=== PATIENT | male | born 1955 | race Caucasian/White ===

== ENCOUNTER 2017-06-19 16:13 | Inpatient (IN) | payer OTHER ==
[2017-06-19 16:43] VITALS: BMI 32.9
[2017-06-19] MEDS ORDERED: diazePAM CARPU-JECT 10 MG/2 ML DISP.SYRIN IVPUSH ONE (17:37)
[2017-06-19] MEDS ORDERED: SODIUM CHLORIDE 1,000 ML IV STA ×2 (17:37→19:08)
--- NOTE | 2017-06-19 17:38 | PDOC ---
History of Present Illness - General History Source: Patient Exam Limitations: No Limitations - History of Present Illness Initial Comments: 06/19/17 19:44 The patient is a 62 year old male, with a significant past medical history of hypertension, chronic kidney failure(not requiring dialysis for 20 years, of unknown cause) who presents to the emergency department BIBA s/p syncopal episode earlier this afternoon. The patient reports he was at work lifting a car door, when suddenly he noticed his right arm began to feel stiff, started shaking, and lifted involuntarily up in the air. The patient reports he lost consciousness shortly after. Per coworkers, the patient did not sustain any head trauma and he regained consciousness after 10 minutes.Patient denies any other motor symptoms, numbness, tingling, aura, or prodrome.The patient reports he had a similar episode 1.5 months ago. Patient reports he felt week and tired s/p both episodes. At the time, the patient followed up with his PCP, and eventually he had a CT, MRI, and 48 hr EEG which were all negative. The patient was told to f/u with a neurologist, but he missed his appointment, because of work. He denies any fever, chills, headache, dizziness, or changes in vision. He denies any chest pain, shortness of breath, diaphoresis, or palpitations. He denies any abdominal pain, nausea, vomiting, diarrhea, constipation, or changes in urination patterns. He denies any recent travel or sick contacts. Allergies: NKDA Past Surgical History: None reported. Social History: Non smoker. No ETOH or recreational drug use. <Suzanna Leroy - Last Filed: 06/19/17 19:44> <Augusta Kamara - Last Filed: 06/19/17 20:49> - General Chief Complaint: Syncope/Near Syncope Stated Complaint: SEIZURE Time Seen by Provider: 06/19/17 16:44 Past History <Suzanna Leroy - Last Filed: 06/19/17 19:44> - Past Medical History HTN: Yes - Psycho/Social/Smoking Cessation Hx Anxiety: No Suicidal Ideation: No Smoking History: Never smoked Substance Use Type: None <Augusta Kamara - Last Filed: 06/19/17 20:49> - Past Medical History Allergies/Adverse Reactions: Allergies Allergy/AdvReac Type Severity Reaction Status Date / Time No Known Allergies Allergy Verified 06/19/17 16:43 Home Medications: Ambulatory Orders Amlodipine Besylate [Norvasc -] 10 mg PO DAILY 06/19/17 Labetalol HCl 0 mg PO ASDIR 06/19/17 Review of Systems - Review of Systems Able to Perform ROS?: Yes Comments:: 06/19/17 19:45 GENERAL/CONSTITUTIONAL: Yes: +weakness, +fatigue. No fever or chills. HEAD, EYES, EARS, NOSE AND THROAT: No change in vision. No ear pain or discharge. No sore throat. CARDIOVASCULAR: No chest pain or shortness of breath. RESPIRATORY: No cough, wheezing, or hemoptysis. GASTROINTESTINAL: No nausea, vomiting, diarrhea or constipation. GENITOURINARY: No dysuria, frequency, or change in urination. MUSCULOSKELETAL: Yes: +right arm stiffness, shaking, and involuntary drifting. No joint or muscle swelling or pain. No neck or back pain. SKIN: No rash NEUROLOGIC: Yes: +loss of consciousness. No headache, vertigo, or change in strength/sensation. ENDOCRINE: No increased thirst. No abnormal weight change. HEMATOLOGIC/LYMPHATIC: No anemia, easy bleeding, or history of blood clots. ALLERGIC/IMMUNOLOGIC: No hives or skin allergy. <Suaznna Leroy - Last Filed: 06/19/17 19:44> *Physical Exam - Vital Signs Last Vital Signs Temp Pulse Resp BP Pulse Ox 98.1 F 80 18 142/73 100 06/19/17 16:33 06/19/17 16:33 06/19/17 16:33 06/19/17 16:33 06/19/17 16:33 <Suzanna Leroy - Last Filed: 06/19/17 19:44> - Vital Signs Last Vital Signs Temp Pulse Resp BP Pulse Ox 98.1 F 80 18 142/73 100 06/19/17 16:33 06/19/17 16:33 06/19/17 16:33 06/19/17 16:33 06/19/17 16:33 - Physical Exam Comments: GENERAL: Awake, alert, and fully oriented, in no acute distress HEAD: No signs of trauma EYES: PERRLA, EOMI, sclera anicteric, conjunctiva clear ENT: Auricles normal inspection, hearing grossly normal, nares patent, oropharynx clear without exudates. Moist mucosa NECK: Normal ROM, supple, no lymphadenopathy, JVD, or masses LUNGS: Breath sounds equal, clear to auscultation bilaterally. No wheezes, and no crackles HEART: Regular rate and rhythm, normal S1 and S2, no murmurs, rubs or gallops ABDOMEN: Soft, nontender, normoactive bowel sounds. No guarding, no rebound. No masses EXTREMITIES: +Coarse tremors in R arm, resolved spontaneously. Remainder of extremities with normal range of motion, no edema. No clubbing or cyanosis. No cords, erythema, or tenderness NEUROLOGICAL: Cranial nerves II through XII grossly intact. Normal speech, normal gait SKIN: Warm, Dry, normal turgor, no rashes or lesions noted. <Augusta Kamara - Last Filed: 06/19/17 20:49> Heart Score/ECG Review - ECG Impressions Comment:: EKG read 19:13- Sinus rhythm 1st deg AV block, 73 bpm, slight peaked T waves V2 , V4 <Augusta Kamara - Last Filed: 06/19/17 20:49> ED Treatment Course - LABORATORY CBC & Chemistry Diagram: 06/19/17 18:01 06/19/17 18:01 - ADDITIONAL ORDERS Additional order review: Laboratory Results 06/19/17 18:01 Sodium 134 L Potassium 6.5 H* Chloride 105 Carbon Dioxide 14 L Anion Gap 15 BUN 147 H* Creatinine 7.7 H* Creat Clearance w eGFR 7.23 Random Glucose 108 H Calcium 7.7 L Phosphorus 5.8 H Magnesium 2.4 Total Bilirubin 0.3 AST 14 L ALT 30 Alkaline Phosphatase 107 Total Protein 6.9 Albumin 4.1 06/19/17 18:01 RBC 3.32 L MCV 89.8 MCHC 33.2 RDW 13.7 MPV 10.3 Neutrophils % 87.9 H Lymphocytes % 5.4 L Monocytes % 4.8 Eosinophils % 1.2 Basophils % 0.7 - Medications Given in the ED: ED Medications Discontinued Medications Generic Name Dose Route Start Last Admin Trade Name Freq PRN Reason Stop Dose Admin Diazepam 5 mg 06/19/17 17:37 06/19/17 18:15 Valium Injection - IVPUSH 06/19/17 17:38 5 mg ONCE ONE Administration Sodium Chloride 1,000 mls @ 1,000 mls/hr 06/19/17 17:37 06/19/17 18:15 Normal Saline - IV 06/19/17 18:36 1,000 mls/hr ASDIR STA Administration <Suzanna Leroy - Last Filed: 06/19/17 19:44> - LABORATORY CBC & Chemistry Diagram: 06/19/17 18:01 06/19/17 18:01 <Augusta Kamara - Last Filed: 06/19/17 20:49> Medical Decision Making - Medical Decision Making Pt with history CKD, was in process of being scheduled for placement of AV fistula. Now with hyperkalemia. Results d/w patient, will admit to hospitalist service, as his physicians are all in [place]. <Augusta Kamara - Last Filed: 06/19/17 20:49> *DC/Admit/Observation/Transfer - Attestations Scribe Attestion: 06/19/17 19:44 Documentation prepared by Suzanna Leroy, acting as medical technologist blood bank for Augusta Kamara MD. <Suzanna Leroy - Last Filed: 06/19/17 19:44> - Discharge Dispostion Admit: Yes <Augusta Kamara - Last Filed: 06/19/17 20:49> Diagnosis at time of Disposition: Hyperkalemia - Discharge Dispostion Condition at time of disposition: Guarded - Referrals Referrals: Kathleen Carlos [Primary Care Provider] -
[2017-06-19] MEDS ORDERED: diazePAM CARPU-JECT 10 MG/2 ML DISP.SYRIN ONE (18:19)
[2017-06-19 18:26] LABS: BASOPHIL 0.7 % (0-2.0); EOSINOPHIL 1.2 % (0-4.5); MCH 29.8 pg (25.7-33.7); MCHC 33.2 g/dl (32.0-35.9); MEAN CELL VOLUME 89.8 fl (80-96); MEAN PLT VOLUME 10.3 fl (7.5-11.1); NEUTROPHILS 87.9 % (42.8-82.8); PLATELET COUNT 162 K/MM3 (134-434); RDW 13.7 % (11.9-15.9); WHITE BLOOD COUNT 11.5 K/mm3 (4.0-10.0)
[2017-06-19 18:50] LABS: ALBUMIN 4.1 g/dl (3.4-5.0); ALK PHOS 107 U/L (45-117); ANION GAP 15 (8-16); BILIRUBIN,TOTAL 0.3 mg/dL (0.2-1.0); CALCIUM 7.7 mg/dL (8.5-10.1); CO2 14 mmol/L (21-32); GLUCOSE,RANDOM 108 mg/dL (74-106); MAGNESIUM 2.4 mg/dL (1.8-2.4); PHOSPHOROUS 5.8 mg/dL (2.5-4.9); SGOT/AST 14 U/L (15-37); SGPT/ALT 30 U/L (12-78); TOT PROT 6.9 g/dl (6.4-8.2)
[2017-06-19 19:05] LABS: CREATININE 7.7 mg/dL (0.7-1.3)
[2017-06-19] MEDS ORDERED: CALCIUM GLUCONATE 10% - 1,000 MG/10 ML VIAL IVPB ONE (19:09)
[2017-06-19] MEDS ORDERED: DEXTROSE 50%-WATER - 25 GM/50 ML VIAL IVPUSH ONE (19:09)
[2017-06-19] MEDS ORDERED: INSULIN REGULAR HUMAN 100 UNITS/ML *VIAL IVPUSH ONE (19:09)
[2017-06-19] MEDS ORDERED: SODIUM BICARBONATE 8.4% 50 MEQ/50 ML DISP.SYRIN IVPUSH ONE (19:09)
[2017-06-19] MEDS ORDERED: SODIUM POLYSTYRENE SULFONATE 15 GM/60 ML BOTTLE PO ONE (19:10)
[2017-06-19] MEDS ORDERED: SODIUM BICARBONATE 8.4% - 50 ML ONE (19:29)
[2017-06-19] MEDS ORDERED: DEXTROSE 50%-WATER 50 ML DISP.SYRIN ONE (19:29)
[2017-06-19] MEDS ORDERED: SODIUM POLYSTYRENE SULFONATE 15 GM/60 ML BOTTLE ONE (19:29)
[2017-06-19] MEDS ORDERED: CALCIUM GLUCONATE 10% - 1,000 MG/10 ML VIAL ONE (19:30)
[2017-06-19] MEDS ORDERED: ALBUTEROL SO4 0.083% IH SOL 2.5 MG/3 ML VIAL.NEB. NEB ONE (19:40)
--- NOTE | 2017-06-19 19:54 | PN ---
Teaching Attending Note Name of Resident: Jonathan Rodgers ATTENDING PHYSICIAN STATEMENT I saw and evaluated the patient. I reviewed the resident's note and discussed the case with the resident. I agree with the resident's findings and plan as documented. SUBJECTIVE:Patient brought to ED after seizure at work on evaluation in ED found to have elevated potassium, BUN and CR and peaked T waves on EKG. Denies any chest pain, sob or dizziness. OBJECTIVE: Gen.: Well-nourished . Alert and oriented x3 in no acute distress. HEENT: Normocephalic, atraumatic, pupils equal and reactive to light and accommodation, EOMI, no exophthalmos, normal nasal and oral pharyngeal mucosa. Neck:Trachea midline, no thyroid nodules appreciated or thyromegaly. Cardiovascular: Regular rate, and rhythm, S1, S2, no murmur, no gallop, no rub. Respiration: Equal bilateral breath sounds ,no wheezing, no rhonchi, and no rales. Abdomen: Soft, nontender, bowel sounds present, no hepatosplenomegaly. Musculoskeletal: No peripheral edema, equal bilateral pulses, normal ROM. Neuro: Cranial nerves II through XII intact, no focal deficits. Skin: warm to touch, no rashs, no lesions CBCD WBC 11.5 K/mm3 (4.0-10.0) H 06/19/17 18:01 RBC 3.32 M/mm3 (4.00-5.60) L 06/19/17 18:01 Hgb 9.9 GM/dL (11.7-16.9) L 06/19/17 18:01 Hct 29.8 % (35.4-49) L 06/19/17 18:01 MCV 89.8 fl (80-96) 06/19/17 18:01 MCHC 33.2 g/dl (32.0-35.9) 06/19/17 18:01 RDW 13.7 % (11.9-15.9) 06/19/17 18: Plt Count 162 K/MM3 (134-434) 06/19/17 18:01 MPV 10.3 fl (7.5-11.1) 06/19/17 18:01 CMP Sodium 134 mmol/L (136-145) L 06/19/17 18:01 Potassium 6.5 mmol/L (3.5-5.1) H* 06/19/17 18:01 Chloride 105 mmol/L (98-107) 06/19/17 18:01 Carbon Dioxide 14 mmol/L (21-32) L 06/19/17 18:01 Anion Gap 15 (8-16) 06/19/17 18:01 BUN 147 mg/dL (7-18) H* 06/19/17 18:01 Creatinine 7.7 mg/dL (0.7-1.3) H* 06/19/17 18:01 Creat Clearance w eGFR 7.23 (>60) 06/19/17 18:01 Calcium 7.7 mg/dL (8.5-10.1) L 06/19/17 18:01 Total Bilirubin 0.3 mg/dL (0.2-1.0) 06/19/17 18:01 AST 14 U/L (15-37) L 06/19/17 18:01 ALT 30 U/L (12-78) 06/19/17 18:01 Alkaline Phosphatase 107 U/L (45-117) 06/19/17 18:01 Total Protein 6.9 g/dl (6.4-8.2) 06/19/17 18:01 Albumin 4.1 g/dl (3.4-5.0) 06/19/17 18:01 ASSESSMENT AND PLAN: MARY on CKD stage 5 with hyperkalemia Cocktail with calcium gluconate given in ED Will repeat BMP in 4 hrs and admit to telemetry for monitoring Seizure ativan 2mg prn follow lactic acid
[2017-06-19] MEDS: ALBUTEROL SO4 0.083% IH SOL 2.5 MG/3 ML VIAL.NEB. NEB SCH (20:30)
[2017-06-19 22:32] LABS: URINE CREATININE 22.5 mg/dL (20-370)
[2017-06-19 22:44] LABS: URINE APPEARANCE CLEAR; URINE BILIRUBIN NEGATIVE (NEGATIVE); URINE BLOOD 3+ (NEGATIVE); URINE COLOR LT. YELLOW; URINE GLUCOSE (UA) TRACE (NEGATIVE); URINE KETONE NEGATIVE (NEGATIVE); URINE LEUK ESTERASE NEGATIVE (NEGATIVE); URINE NITRITE NEGATIVE (NEGATIVE); URINE UROBILINOGEN 0.2 mg/dL (0.2-1.0)
[2017-06-19 22:47] LABS: URINE PROTEIN 1+ (NEGATIVE)
[2017-06-19 23:01] LABS: URINE RBC 7 /hpf (0-3)
[2017-06-19] MEDS: HEPARIN NA (PORCINE) 5,000 UNITS/ML 1ML VIAL SQ SCH (23:55)
[2017-06-19] MEDS ORDERED: HEPARIN NA (PORCINE) 5,000 UNITS/ML 1ML VIAL ONE (23:55)
[2017-06-20 00:40] LABS: ANION GAP 16 (8-16); CALCIUM 7.7 mg/dL (8.5-10.1); CO2 16 mmol/L (21-32); CREATININE 7.2 mg/dL (0.7-1.3); GLUCOSE,RANDOM 161 mg/dL (74-106)
--- NOTE | 2017-06-20 01:06 | HP ---
CHIEF COMPLAINT: arm shaking and syncope PCP: Kathleen Monahan English As A Second Language Instructor: Erick Martin ([phone]) [employer] Form [employer]ter #[id number] HISTORY OF PRESENT ILLNESS: 62M w/ hx of CKD stage 5, longstanding nephrotic syndrome, and HTN presenting after episode of arm shaking and syncope. 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 Pt reports some confusion for several minutes after LOC. He denies tongue biting, urinary incontinence, or falling down during episode; he states that his coworkers caught him before he fell to the ground. He currently endorses SOB, weakness, fatigue, palpitations. He denies TREJO, chest pain, cough, abdominal pain, n/v/d/c, and dysuria. Of note, pt had one other similar episode 1.5 months ago. He states that his right arm started shaking, and then he had some mild full body shaking, but he did not have any LOC. Following that episode, he went to a doctor, and underwent a CT head, MRI brain, and 48 hour EEG which were all negative. He was told to follow up with a neurologist, but was not able to see one yet due to the time constraints of his job. He states that during the last year, he has had to switch insurances due to financial troubles which resulted in him not seeing a tool storage attendant regularly. He states that his current tool storage attendant has talked to him about starting dialysis. 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 REVIEW OF SYSTEMS GENERAL: No fever, chills, night sweats, + weakness. HEAD, EYES, EARS, NOSE AND THROAT: No change in vision, ear pain, or sore throat CARDIOVASCULAR: No chest pain, + palpitations RESPIRATORY: No cough, wheezing, or hemoptysis. + SOB GASTROINTESTINAL: No nausea, vomiting, diarrhea, constipation, or blood in the stool. GENITOURINARY: No dysuria, + frequency, no urgency MUSCULOSKELETAL: No joint or muscle swelling or pain. SKIN: No rashes or pruritis ENDOCRINE: No increased thirst. No abnormal weight change NEUROLOGIC: No headache, dizziness, + loss of consciousness, no change in strength/sensation. PHYSICAL EXAMINATION Vital Signs - 24 hr 06/19/17 06/19/17 06/19/17 16:33 20:28 23:40 Temperature 98.1 F 98.1 F Pulse Rate 80 Pulse Rate [ 85 82 Apical] Respiratory 18 19 19 Rate Blood Pressure 142/73 Blood Pressure 160/76 150/80 [Left Arm] O2 Sat by Pulse 100 100 99 Oximetry (%) GENERAL: Awake, alert, and fully oriented, in mild distress. HEAD: Normal with no signs of trauma. EYES: Pupils equal, round and reactive to light, extraocular movements intact, sclera anicteric, conjunctiva clear. No lid lag. EARS, NOSE, THROAT: Ears normal, nares patent, oropharynx clear without exudates. Moist mucous membranes. NECK: Normal range of motion, supple without lymphadenopathy, JVD, or masses. LUNGS: Breath sounds equal, clear to auscultation bilaterally. No wheezes, and no crackles. No accessory muscle use. HEART: Regular rate and rhythm, normal S1 and S2, systolic murmur heard best in the right 2nd intercostal space ABDOMEN: Soft, nontender, not distended, normoactive bowel sounds, no guarding, no rebound, no masses. No hepatomegaly or splenomegaly. MUSCULOSKELETAL: Normal range of motion at all joints. No bony deformities or tenderness. No CVA tenderness. UPPER EXTREMITIES: 2+ pulses, warm, well-perfused. No cyanosis. No clubbing. No peripheral edema. LOWER EXTREMITIES: 2+ pulses, warm, well-perfused. No calf tenderness. 2+ peripheral edema b/l. NEUROLOGICAL: Cranial nerves II-XII intact. Normal speech. Normal gait. PSYCHIATRIC: Cooperative. Good eye contact. Appropriate mood and affect. SKIN: Warm, dry, normal turgor, no rashes or lesions noted, normal capillary refill. Laboratory Results - last 24 hr 06/19/17 06/19/17 06/19/17 18:01 18:01 21:20 WBC 11.5 H RBC 3.32 L Hgb 9.9 L Hct 29.8 L MCV 89.8 MCH 29.8 MCHC 33.2 RDW 13.7 Plt Count 162 MPV 10.3 Neutrophils % 87.9 H Lymphocytes % 5.4 L Monocytes % 4.8 Eosinophils % 1.2 Basophils % 0.7 Sodium 134 L Potassium 6.5 H* Chloride 105 Carbon Dioxide 14 L Anion Gap 15 BUN 147 H* Creatinine 7.7 H* Creat Clearance w eGFR 7.23 Random Glucose 108 H Calcium 7.7 L Phosphorus 5.8 H Magnesium 2.4 Total Bilirubin 0.3 AST 14 L ALT 30 Alkaline Phosphatase 107 Total Protein 6.9 Albumin 4.1 Urine Color Lt. yellow Urine Appearance Clear Urine pH 5.0 Urine Protein 1+ H Urine Glucose (UA) Trace H Urine Ketones Negative Urine Blood 3+ H Urine Nitrite Negative Urine Bilirubin Negative Urine Urobilinogen 0.2 Ur Leukocyte Esterase Negative Urine RBC 7 Urine WBC None Urine Creatinine 06/19/17 21:20 WBC RBC Hgb Hct MCV MCH MCHC RDW Plt Count MPV Neutrophils % Lymphocytes % Monocytes % Eosinophils % Basophils % Sodium Potassium Chloride Carbon Dioxide Anion Gap BUN Creatinine Creat Clearance w eGFR Random Glucose Calcium Phosphorus Magnesium Total Bilirubin AST ALT Alkaline Phosphatase Total Protein Albumin Urine Color Urine Appearance Urine pH Urine Protein 61 Urine Glucose (UA) Urine Ketones Urine Blood Urine Nitrite Urine Bilirubin Urine Urobilinogen Ur Leukocyte Esterase Urine RBC Urine WBC Urine Creatinine 22.5 ASSESSMENT/PLAN: 62M w/ hx of CKD stage 5, longstanding nephrotic syndrome, and HTN presenting after episode of seizure, found to have hyperkalemia w/ peaked T waves on EKG. #Hyperkalemia -2/2 hx of CKD compounded by episode of seizure leading to rhabdomyolysis -received 1g of calcium gluconate, 10U of insulin w/ 50g of dextrose, albuterol , sodium bicarbonate, and 30g of kayexalate. -trend BMP and lactate -consider repeat EKG in am -cardiac telemetry -nephrology on board -potassium: 6.5 --> 4.3 -creatinine: 7.7 --> 7.2 #seizure -2nd episode as per pt -pt was referred to neurologist already but has not had chance to see one yet -ativan 2mg PRN - neurology on board #kidney injury -acute on chronic kidney injury? no baseline creatinine -nephrology on board #hematuria -UA shows 3+ blood with only 7 RBCs likely 2/2 rhabdo # hypocalcemia -calcium of 7.7 -2/2 CKD -continue home calcitriol, confirm dosage in am #hyperphosphatemia -phosphate of 5.8 -2/2 CKD #leukocytosis w/ left shift -probably leukemoid reactioni 2/2 seizure -trend wbc #anemia -hgb of 9.9, mcv of 89 -likely due to CKD -continue home iron, confirm dosage in am #HTN -confirm home medications in am. Pt reports taking labetalol and amlodipine but doesn't appear to be sure. -amlodipine 10mg qd #systolic murmur -pt was told that we recommend that he receive an echocardiogram to further assess his murmur. Pt stated that he is very worried about paying for it with his current insurance situation, he understands the risks and benefits of not receiving one in the hospital, and still stated that he does not want one to be done here. Pt reports that he will pursue one as an outpatient with a pipe cleaner. #FEN/ppx -no fluids -calcium low, phosphate high -renal diet -no GI ppx -SCDs and heparin 5000 U TID Jonathan Rodgers, PGY1 Problem List - Problem (1) Hyperkalemia Code(s): E87.5 - HYPERKALEMIA (2) Hypertension Code(s): I10 - ESSENTIAL (PRIMARY) HYPERTENSION (3) CKD (chronic kidney disease) Code(s): N18.9 - CHRONIC KIDNEY DISEASE, UNSPECIFIED (4) Nephrotic syndrome Code(s): N04.9 - NEPHROTIC SYNDROME WITH UNSPECIFIED MORPHOLOGIC CHANGES (5) Seizure Code(s): R56.9 - UNSPECIFIED CONVULSIONS (6) Anemia Code(s): D64.9 - ANEMIA, UNSPECIFIED (7) Systolic murmur Code(s): R01.1 - CARDIAC MURMUR, UNSPECIFIED Visit type - Emergency Visit Emergency Visit: Yes Care time: The patient presented to the Emergency Department on the above date and was hospitalized for further evaluation of their emergent condition. - New Patient This patient is new to me today: Yes Date on this admission: 06/20/17 - Critical Care Critical Care patient: No
[2017-06-20] MEDS: HEPARIN NA (PORCINE) 5,000 UNITS/ML 1ML VIAL SQ SCH ×2 (06:41→16:51)
[2017-06-20 07:44] LABS: MCHC 33.9 g/dl (32.0-35.9); MEAN CELL VOLUME 88.6 fl (80-96); MEAN PLT VOLUME 9.9 fl (7.5-11.1); PLATELET COUNT 149 K/MM3 (134-434); RDW 13.5 % (11.9-15.9); WHITE BLOOD COUNT 6.6 K/mm3 (4.0-10.0)
[2017-06-20 08:11] LABS: ANION GAP 13 (8-16); CALCIUM 7.7 mg/dL (8.5-10.1); CO2 18 mmol/L (21-32); GLUCOSE,RANDOM 92 mg/dL (74-106); MAGNESIUM 2.2 mg/dL (1.8-2.4)
[2017-06-20 08:13] LABS: PHOSPHOROUS 6.8 mg/dL (2.5-4.9)
[2017-06-20 08:28] LABS: CREATININE 7.1 mg/dL (0.7-1.3)
--- NOTE | 2017-06-20 09:44 | PN ---
Physical Exam: SUBJECTIVE: Patient seen and examined OBJECTIVE: Vital Signs Temperature 98.4 F 06/20/17 06:02 Pulse Rate 81 06/20/17 06:02 Respiratory Rate 19 06/20/17 06:02 Blood Pressure 138/67 06/20/17 06:02 O2 Sat by Pulse Oximetry (%) 99 06/20/17 04:00 GENERAL: The patient is awake, alert, and fully oriented, in no acute distress. HEAD: Normal with no signs of trauma. EYES: PERRL, extraocular movements intact, sclera anicteric, conjunctiva clear. No ptosis. ENT: Ears normal, nares patent, oropharynx clear without exudates, moist mucous membranes. NECK: Trachea midline, full range of motion, supple. LUNGS: Breath sounds equal, clear to auscultation bilaterally, no wheezes, no crackles, no accessory muscle use. HEART: Regular rate and rhythm, S1, S2 without murmur, rub or gallop. ABDOMEN: Soft, nontender, nondistended, normoactive bowel sounds, no guarding, no rebound, no hepatosplenomegaly, no masses. EXTREMITIES: 2+ pulses, warm, well-perfused, no edema. NEUROLOGICAL: Cranial nerves II through XII grossly intact. Normal speech, gait not observed. PSYCH: Normal mood, normal affect. SKIN: Warm, dry, normal turgor, no rashes or lesions noted CBCD WBC 6.6 K/mm3 (4.0-10.0) D 06/20/17 06:00 RBC 3.21 M/mm3 (4.00-5.60) L 06/20/17 06:00 Hgb 9.7 GM/dL (11.7-16.9) L 06/20/17 06:00 Hct 28.5 % (35.4-49) L 06/20/17 06:00 MCV 88.6 fl (80-96) 06/20/17 06:00 MCHC 33.9 g/dl (32.0-35.9) 06/20/17 06:00 RDW 13.5 % (11.9-15.9) 06/20/17 06:00 Plt Count 149 K/MM3 (134-434) 06/20/17 06:00 MPV 9.9 fl (7.5-11.1) 06/20/17 06:00 CMP Sodium 145 mmol/L (136-145) 06/20/17 06:00 Potassium 4.0 mmol/L (3.5-5.1) 06/20/17 06:00 Chloride 114 mmol/L (98-107) H 06/20/17 06:00 Carbon Dioxide 18 mmol/L (21-32) L 06/20/17 06:00 Anion Gap 13 (8-16) 06/20/17 06:00 BUN 128 mg/dL (7-18) H* 06/20/17 06:00 Creatinine 7.1 mg/dL (0.7-1.3) H 06/20/17 06:00 Creat Clearance w eGFR 7.23 (>60) 06/19/17 18:01 Random Glucose 92 mg/dL (74-106) D 06/20/17 06:00 Calcium 7.7 mg/dL (8.5-10.1) L 06/20/17 06:00 Total Bilirubin 0.3 mg/dL (0.2-1.0) 06/19/17 18:01 AST 14 U/L (15-37) L 06/19/17 18:01 ALT 30 U/L (12-78) 06/19/17 18:01 Alkaline Phosphatase 107 U/L (45-117) 06/19/17 18:01 Total Protein 6.9 g/dl (6.4-8.2) 06/19/17 18:01 Albumin 4.1 g/dl (3.4-5.0) 06/19/17 18:01 Active Medications Generic Name Dose Route Start Last Admin Trade Name Sophy PRN Reason Stop Dose Admin Amlodipine Besylate 10 mg 06/20/17 10:00 06/20/17 09:35 Norvasc - PO 10 mg DAILY IRINEO Administration Heparin Sodium (Porcine) 5,000 unit 06/19/17 22:45 06/20/17 06:41 Heparin - SQ 5,000 unit TID IRINEO Administration Home Medications Medication Instructions Recorded Amlodipine Besylate [Norvasc -] 10 mg PO DAILY 06/19/17 Labetalol HCl 0 mg PO ASDIR 06/19/17 ASSESSMENT/PLAN: 62M w/ hx of CKD stage 5, longstanding nephrotic syndrome, and HTN presenting after episode of seizure, found to have hyperkalemia w/ peaked T waves on EKG. #Hyperkalemia -2/2 hx of CKD compounded by episode of seizure leading to rhabdomyolysis -received 1g of calcium gluconate, 10U of insulin w/ 50g of dextrose, albuterol , sodium bicarbonate, and 30g of kayexalate. -trend BMP and lactate -consider repeat EKG in am -cardiac telemetry -nephrology on board -potassium: 6.5 --> 4.3 -creatinine: 7.7 --> 7.2 #seizure -2nd episode as per pt -pt was referred to neurologist already but has not had chance to see one yet -ativan 2mg PRN - neurology on board #kidney injury -acute on chronic kidney injury? no baseline creatinine -nephrology on board #hematuria -UA shows 3+ blood with only 7 RBCs likely 2/2 rhabdo # hypocalcemia -calcium of 7.7 -2/2 CKD -continue home calcitriol, confirm dosage in am #hyperphosphatemia -phosphate of 5.8 -2/2 CKD #leukocytosis w/ left shift -probably leukemoid reactioni 2/2 seizure -trend wbc #anemia -hgb of 9.9, mcv of 89 -likely due to CKD -continue home iron, confirm dosage in am #HTN -confirm home medications in am. Pt reports taking labetalol and amlodipine but doesn't appear to be sure. -amlodipine 10mg qd #systolic murmur -pt was told that we recommend that he receive an echocardiogram to further assess his murmur. Pt stated that he is very worried about paying for it with his current insurance situation, he understands the risks and benefits of not receiving one in the hospital, and still stated that he does not want one to be done here. Pt reports that he will pursue one as an outpatient with a powerhouse tender. #FEN/ppx -no fluids -calcium low, phosphate high -renal diet -no GI ppx -SCDs and heparin 5000 U TID
[2017-06-20] MEDS ORDERED: amLODIPine BESYLATE 10 MG TABLET (FP) PO SCH (10:00)
--- NOTE | 2017-06-20 11:22 | CON.NEURO ---
Consult - History of Present Illness History of Present Illness: 62M w/ hx of CKD stage 5, longstanding nephrotic syndrome, and HTN presenting after episode of arm shaking and syncope. 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 Pt reports some confusion for several minutes after LOC. He denies tongue biting, urinary incontinence, or falling down during episode; he states that his coworkers caught him before he fell to the ground. He currently endorses SOB, weakness, fatigue, palpitations. He denies TREJO, chest pain, cough, abdominal pain, n/v/d/c, and dysuria. Of note, pt had one other similar episode 1.5 months ago. He states that his right arm started shaking, and then he had some mild full body shaking, but he did not have any LOC. Following that episode, he went to a doctor, and underwent a CT head, MRI brain, and 48 hour EEG which were all negative. daughter bedside, states they have been seen at [facility]-- have FU nephro there on Saturday 06/23 for eval regarding dialysis and graft etc. no TREJO, or focal motor sensory c/o. - Alcohol/Substance Use Hx Alcohol Use: No - Smoking History Smoking history: Never smoked Have you smoked in the past 12 months: No Home Medications - Allergies Allergies/Adverse Reactions: Allergies Allergy/AdvReac Type Severity Reaction Status Date / Time No Known Allergies Allergy Verified 06/19/17 16:43 - Home Medications Home Medications: Ambulatory Orders Amlodipine Besylate [Norvasc -] 10 mg PO DAILY 06/19/17 Labetalol HCl 0 mg PO ASDIR 06/19/17 Physical Exam-Neuro Vital Signs: Vital Signs Temperature 98.4 F 06/20/17 06:02 Pulse Rate 81 06/20/17 06:02 Respiratory Rate 19 06/20/17 06:02 Blood Pressure 138/67 06/20/17 06:02 O2 Sat by Pulse Oximetry (%) 99 06/20/17 04:00 Labs: CBC, BMP 06/20/17 06:00 06/20/17 06:00 - Neuro Exam Level Of Consciousness: Yes: Alert, Oriented to Person (awake , EIOMI, VFF, no facial, motor 5/5, no drift, plantars down) Problem List - Problems (1) CKD (chronic kidney disease) Code(s): N18.9 - CHRONIC KIDNEY DISEASE, UNSPECIFIED (2) Seizure Code(s): R56.9 - UNSPECIFIED CONVULSIONS Assessment/Plan 62M w/ hx of CKD stage 5, longstanding nephrotic syndrome, and HTN presenting after episode of arm shaking and syncope. 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 Pt reports some confusion for several minutes after LOC. He denies tongue biting, urinary incontinence, or falling down during episode; he states that his coworkers caught him before he fell to the ground. He currently endorses SOB, weakness, fatigue, palpitations. He denies TREJO, chest pain, cough, abdominal pain, n/v/d/c, and dysuria. Of note, pt had one other similar episode 1.5 months ago. He states that his right arm started shaking, and then he had some mild full body shaking, but he did not have any LOC. Following that episode, he went to a doctor, and underwent a CT head, MRI brain, and 48 hour EEG which were all negative. seizures likely metabolic in origin--elevated BUN/creatinine he understands importance of getting dialysis and has appt at [facility] for dialysis eval next week kayexlate etc in meantime will not treat seizures at this juncture FU outpt neuro Dr Lopez [phone]
--- NOTE | 2017-06-20 12:17 | EKG ---
Test Reason : Blood Pressure : / mmHG Vent. Rate : 075 BPM Atrial Rate : 075 BPM P-R Int : 228 ms QRS Dur : 100 ms QT Int : 398 ms P-R-T Axes : 046 020 039 degrees QTc Int : 444 ms SINUS RHYTHM WITH 1ST DEGREE A-V BLOCK EARLY REPOLARIZATION WHEN COMPARED WITH ECG OF 19-JUN-2017 19:05, NO SIGNIFICANT CHANGE WAS FOUND REPEAT EKG IF CLINICALLY INDICATED Confirmed by BHAVIN BIRD MD ([id number]) on 06/20/2017 12:17:34 PM Referred By: Brenda WANG Confirmed By:BHAVIN BIRD MD
--- NOTE | 2017-06-20 13:05 | EKG ---
Test Reason : Blood Pressure : / mmHG Vent. Rate : 073 BPM Atrial Rate : 073 BPM P-R Int : 228 ms QRS Dur : 098 ms QT Int : 396 ms P-R-T Axes : 063 021 050 degrees QTc Int : 436 ms SINUS RHYTHM WITH 1ST DEGREE A-V BLOCK PROBABLE EARLY REPOLARIZATION PATTERN NO PREVIOUS ECGS AVAILABLE REPEAT EKG IF CLINICALLY INDICATED Confirmed by BHAVIN BIRD MD ([id number]) on 06/20/2017 1:05:19 PM Referred By: Confirmed By:BHAVIN BIRD MD
--- NOTE | 2017-06-20 13:58 | CONSULT ---
Consult Consult Specialty:: Nephrology ( Drs. bhatti/ Devon) Reason for Consultation:: Elevated K, BUN, Creatinine - History of Present Illness History of Present Illness: 62 y/o male with hx of CKD stage 5, longstanding nephrotic syndrome, and HTN presenting after episode of arm shaking and syncope. 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 Pt reports some confusion for several minutes after LOC. He denies tongue biting, urinary incontinence, or falling down during episode; he states that his coworkers caught him before he fell to the ground. He currently endorses SOB, weakness, fatigue, palpitations. He denies TREJO, chest pain, cough, abdominal pain, n/v/d/c , and dysuria. The patient is known to have advanced Kidney disease, and is being folowed bya Client Representative in [place]. ( name). Discussed in detail with the patient and his daughter. They do not want any specific interventions by us at this time. He states that during the last year, he has had to switch insurances due to financial troubles which resulted in him not seeing a Client Representative regularly. He states that his current Client Representative has talked to him about starting dialysis. - History Source History Provided By: Patient, Family Member Limitations to Obtaining History: Other (language barrier) - Past Medical History Cardio/Vascular: Yes: HTN Renal/: Yes: Renal Failure - Alcohol/Substance Use Hx Alcohol Use: No - Smoking History Smoking history: Never smoked Have you smoked in the past 12 months: No Home Medications - Allergies Allergies/Adverse Reactions: Allergies Allergy/AdvReac Type Severity Reaction Status Date / Time No Known Allergies Allergy Verified 06/19/17 16:43 - Home Medications Home Medications: Ambulatory Orders Amlodipine Besylate [Norvasc -] 10 mg PO DAILY 06/19/17 Labetalol HCl 0 mg PO ASDIR 06/19/17 Review of Systems - Review of Systems Neck: reports: Stiffness Cardiovascular: reports: Shortness of Breath Gastrointestinal: denies: Constipation, Diarrhea, Nausea Genitourinary: reports: Frequency Musculoskeletal: reports: Back Pain Neurological: reports: Dizziness, Seizure (h/o similar episodes three times in the past) Physical Exam Vital Signs: Vital Signs Temperature 98.8 F 06/20/17 10:00 Pulse Rate 80 06/20/17 10:00 Respiratory Rate 20 06/20/17 10:00 Blood Pressure 145/69 06/20/17 10:00 O2 Sat by Pulse Oximetry (%) 99 06/20/17 10:00 Constitutional: Yes: No Distress, Anxious Eyes: Yes: Conjunctiva Clear Neck: Yes: Trachea Midline Cardiovascular: Yes: Regular Rate and Rhythm, S1, S2 Respiratory: Yes: Regular, CTA Bilaterally Gastrointestinal: Yes: Normal Bowel Sounds, Soft Renal/: No: CVA Tenderness - Left, CVA Tenderness - Right, Incontinence, Scrotal Edema Edema: No Neurological: Yes: Alert, Oriented, Asterixis, Ataxia Labs: CBC, BMP 06/20/17 06:00 06/20/17 06:00 Problem List - Problems (1) Anemia Code(s): D64.9 - ANEMIA, UNSPECIFIED (2) CKD (chronic kidney disease) Code(s): N18.9 - CHRONIC KIDNEY DISEASE, UNSPECIFIED (3) Hyperkalemia Code(s): E87.5 - HYPERKALEMIA (4) Hypertension Code(s): I10 - ESSENTIAL (PRIMARY) HYPERTENSION (5) Nephrotic syndrome Code(s): N04.9 - NEPHROTIC SYNDROME WITH UNSPECIFIED MORPHOLOGIC CHANGES (6) Seizure Code(s): R56.9 - UNSPECIFIED CONVULSIONS (7) Systolic murmur Code(s): R01.1 - CARDIAC MURMUR, UNSPECIFIED Assessment/Plan 2M w/ hx of CKD stage 5, longstanding nephrotic syndrome, and HTN presenting after episode of arm shaking and syncope. The patient reportedly with Kidney disease for a long time, and had been under the care of a Client Representative in [place]. End Stage renal Disease... with symptoms of uremia. Has Asterexis. The patient needs Renal Replacement therapy. It is likely that his "seizure" was related to the uremia. Hyperkalemia due to reduced Renal mass, and resultant defective secretion of tubular Potassium. Anemia of CKD. Will need JC. PLAN: Emergency treatment of Hyperkalemia. CKD Education was done, and detailed overview of the different [employer] , diet and medications. The patient seems o have an inclination towards Peritoneal dialysis. But he will discuss it with his Client Representative. Thanks again for this kind referral. Will follow with you Ragini Bhatti MD
[2017-06-20 14:23] VITALS: BP 135/65; PULSE 73; TEMP 99
--- NOTE | 2017-06-20 16:49 | DS ---
Physical Exam: SUBJECTIVE: Patient seen and examined Patient is feeling better, Potassium is 4.3 today. Patient's daughter at bedside. Patient has his own doctors that has an appointment to go to this Thursday. OBJECTIVE: Vital Signs Temperature 99 F 06/20/17 14:20 Pulse Rate 73 06/20/17 14:20 Respiratory Rate 20 06/20/17 14:20 Blood Pressure 135/65 06/20/17 14:20 O2 Sat by Pulse Oximetry (%) 99 06/20/17 10:00 PHYSICAL EXAM GENERAL: The patient is awake, alert, and fully oriented, in no acute distress. HEAD: Normal with no signs of trauma. EYES: PERRL, extraocular movements intact, sclera anicteric, conjunctiva clear. ENT: Ears normal, oropharynx clear without exudates, moist mucous membranes. NECK: Trachea midline, full range of motion, supple. LUNGS: Breath sounds equal, clear to auscultation bilaterally, no wheezes, no crackles, no accessory muscle use. HEART: Regular rate and rhythm, S1, S2 without murmur, rub or gallop. ABDOMEN: Soft, nontender, nondistended, normoactive bowel sounds, no guarding, no rebound, no hepatosplenomegaly, no masses. EXTREMITIES: 2+ pulses, warm, well-perfused, no edema. NEUROLOGICAL: Cranial nerves II through XII grossly intact. Normal speech, gait not observed. PSYCH: Normal mood, normal affect. SKIN: Warm, dry, normal turgor, no rashes or lesions noted. LABS Laboratory Results - last 24 hr 06/19/17 06/19/17 06/20/17 21:20 21:20 00:05 WBC RBC Hgb Hct MCV MCH MCHC RDW Plt Count MPV Sodium 142 Potassium 4.3 D Chloride 110 H Carbon Dioxide 16 L Anion Gap 16 BUN 140 H* Creatinine 7.2 H POC Glucometer Random Glucose 161 H D Calcium 7.7 L Phosphorus Magnesium Urine Color Lt. yellow Urine Appearance Clear Urine pH 5.0 Ur Specific [place] 1.010 Urine Protein 1+ H 61 Urine Glucose (UA) Trace H Urine Ketones Negative Urine Blood 3+ H Urine Nitrite Negative Urine Bilirubin Negative Urine Urobilinogen 0.2 Ur Leukocyte Esterase Negative Urine RBC 7 Urine WBC None Urine Creatinine 22.5 06/20/17 06/20/17 06/20/17 05:31 06:00 06:00 WBC 6.6 D RBC 3.21 L Hgb 9.7 L Hct 28.5 L MCV 88.6 MCH 30.0 MCHC 33.9 RDW 13.5 Plt Count 149 MPV 9.9 Sodium 145 Potassium 4.0 Chloride 114 H Carbon Dioxide 18 L Anion Gap 13 BUN 128 H* Creatinine 7.1 H POC Glucometer 95 Random Glucose 92 D Calcium 7.7 L Phosphorus 6.8 H Magnesium 2.2 Urine Color Urine Appearance Urine pH Ur Specific [place] Urine Protein Urine Glucose (UA) Urine Ketones Urine Blood Urine Nitrite Urine Bilirubin Urine Urobilinogen Ur Leukocyte Esterase Urine RBC Urine WBC Urine Creatinine Current Medications Generic Name Dose Route Start Last Admin Trade Name Freq PRN Reason Stop Dose Admin Amlodipine Besylate 10 mg 06/20/17 10:00 06/20/17 09:35 Norvasc - PO 10 mg DAILY IRINEO Administration Heparin Sodium (Porcine) 5,000 unit 06/19/17 22:45 06/20/17 06:41 Heparin - SQ 5,000 unit TID IRINEO Administration Home Medications Medication Instructions Recorded Amlodipine Besylate [Norvasc -] 10 mg PO DAILY 06/19/17 Labetalol HCl 0 mg PO ASDIR 06/19/17 HOSPITAL COURSE: Date of Admission:06/19/17 Date of Discharge: 06/20/17 62M w/ hx of CKD stage 5, longstanding nephrotic syndrome, and HTN presenting after episode of seizure, found to have hyperkalemia w/ peaked T waves on EKG. # S/p Acute Hyperkalemia ;potassium: 6.5 --> 4.3 ;creatinine: 7.7 --> 7.2, patient is going to see his own competitive intelligence analyst as per daughter at bedside. has an appointment for coming Thursday. patient and the daughter would like to follow up with his own [employer]. Was recommended that if he develops any symptoms to return to the hospital. Discussed with competitive intelligence analyst, ok to discharge and follow with his own competitive intelligence analyst. #seizure most likely due to elevated BUN/Creatinine , no further seizure medication needed at this time as per neuro. #Acute on chronic kidney injury, nephrology on board, further w/u is being done by his competitive intelligence analyst , patient has an appoint ment by this Thursday as per daughter. # hypocalcemia with calcium level of 7.7, continue home calcitriol #hyperphosphatemia due to his renal failure #leukocytosis improved #anemia of chronic disease with hgb of 9.9, mcv of 89 #HTN continue home meds. Discharge patient home now. 40 minutes discharge summary Minutes to complete discharge: 40 Discharge Summary Reason For Visit: HYPERKALEMIA Current Active Problems Anemia (Acute) CKD (chronic kidney disease) (Acute) Hyperkalemia (Acute) Hypertension (Acute) Nephrotic syndrome (Acute) Seizure (Acute) Systolic murmur (Acute) Condition: Stable - Instructions Diet, Activity, Other Instructions: AVOID HIGH POTASSIUM FOODS IN YOUR DIET Referrals: Blaine Lopez DO [Staff Physician] - Ragini Mccurdy MD [Staff Physician] - Kathleen Carlos [Primary Care Provider] - Disposition: HOME - Home Medications Comprehensive Discharge Medication List: Ambulatory Orders Amlodipine Besylate [Norvasc -] 10 mg PO DAILY 06/19/17 Labetalol HCl 0 mg PO ASDIR 06/19/17 This patient is new to me today: Yes Date on this admission: 06/20/17 Emergency Visit: Yes ED Registration Date: 06/19/17 Care time: The patient presented to the Emergency Department on the above date and was hospitalized for further evaluation of their emergent condition. Critical Care patient: No - Discharge Referral Referred to [facility] No
== END 2017-06-20 17:13 | disposition home or self-care (01) | DRG 641 ==
LOC: JER 16:13 → JERBED 19:53 → J4W 06-20 02:18
PROVIDERS: ADMIT Internal Medicine; ATTEND Internal Medicine
DX: E87.5 Hyperkalemia (principal); N17.9 Acute kidney failure, unspecified; N18.5 Chronic kidney disease, stage 5; I12.0 Hypertensive chronic kidney disease with stage 5 chronic kidney disease or end stage renal disease; M62.82 Rhabdomyolysis; R56.9 Unspecified convulsions; R55 Syncope and collapse; R31.9 Hematuria, unspecified; E83.51 Hypocalcemia; E83.39 Other disorders of phosphorus metabolism; D63.1 Anemia in chronic kidney disease; D72.829 Elevated white blood cell count, unspecified; R01.1 Cardiac murmur, unspecified
CPT/HCPCS: 36415; 71010-TC; 80048; 80053; 81003; 81015; 82570; 83735; 84100; 84156; 85025; 85027; 93005; 93010; 99285-25; J1644